=== PATIENT | male | born 1955 | race Caucasian/White ===

== ENCOUNTER 2017-08-04 09:28 | Day surgery (SDC) | payer BC ==
[~2017-08-04 09:28] MED LIST: Lactated Ringers 1,000 ML IV SCH; Lidocaine 1% 0 ML ONE; Lidocaine 1%/Sod Bicarbonate in NS 8.4% 1 ML Syringe IDERM PRN; Propofol 200 MG/20 ML SDV ONE; Sodium Chloride 0.9% 10 ML Syringe FLUSH PRN; fentaNYL 100 MCG/2 ML SDV ONE
[2017-08-04] MEDS ORDERED: Midazolam 1 MG/ML 2 ML SDV ONE (09:33)
[2017-08-04] MEDS ORDERED: Lidocaine 1% 4 ML ONE (09:33)
[2017-08-04] MEDS ORDERED: fentaNYL 100 MCG/2 ML SDV ONE (09:33)
[2017-08-04] MEDS ORDERED: Propofol 200 MG/20 ML SDV ONE (09:33)
--- NOTE | 2017-08-04 09:55 | PCM.PREANE ---
Preanesthetic Assessment - Anesthesia/Transfusion/Family Hx Anesthesia History: Prior Anesthesia Without Reaction Family History of Anesthesia Reaction: No Transfusion History: No Prior Transfusion(s) - Review of Systems General: No Symptoms Pulmonary: No Symptoms, Other (Sleep Apnea test was done. He could not sleep. He does not want to repeat the test. His states he snores a little. ) Cardiovascular: No Symptoms, Other (Hypertension. Eh today. States he is very nervous. ) Gastrointestinal: Other (GERD on medications and states it is controlled well. ) Neurological: No Symptoms Other: Reports: None - Physical Assessment NPO Status Date: 08/03/17 NPO Status Time: 23:45 Pulse: 83 O2 Sat by Pulse Oximetry: 94 Respiratory Rate: 20 Blood Pressure: 179/94 Temperature: 36.8 C Weight: 109 kg ASA Class: 2 Mental Status: Alert & Oriented x3 Airway Class: Mallampati = 2 Dentition: Reports: Normal Dentition Thyro-Mental Finger Breadths: 3 Mouth Opening Finger Breadths: 3 ROM/Head Extension: Full Lungs: Clear to Auscultation, Normal Respiratory Effort, Decreased Breath Sounds Cardiovascular: Regular Rate, Regular Rhythm - Imaging/EKG Impressions: EKG SR 89 bpm - Allergies Allergies/Adverse Reactions: Allergies Allergy/AdvReac Type Severity Reaction Status Date / Time No Known Allergies Allergy Verified 08/01/17 14:26 - Blood Blood Available: No - Acknowledgements Anesthesia Type Planned: MAC Pt an Appropriate Candidate for the Planned Anesthesia: Yes Alternatives and Risks of Anesthesia Discussed w Pt/Guardian: Yes Pt/Guardian Understands and Agrees with Anesthesia Plan: Yes PreAnesthesia Questionnaire HEENT History: Reports: Sinusitis, Other (See Below) Other HEENT History: Patient states he wears eye glasses for driving. Cardiovascular History: Reports: Hypertension Gastrointestinal History: Reports: Other (See Below) Other Gastrointestinal History: Heartburn Genitourinary History: Reports: Other (See Below) Other Genitourinary History: Nocturia Hematologic History: Reports: Iron Deficiency - Past Surgical History HEENT Surgical History: Reports: None Cardiovascular Surgical History: Reports: None Respiratory Surgical History: Reports: None GI Surgical History: Reports: None Female Surgical History: Reports: None Endocrine Surgical History: Reports: None Neurological Surgical History: Reports: None Musculoskeletal Surgical History: Reports: None Dermatological Surgical History: Reports: None - HOME MEDS Home Medications: Home Meds Omeprazole Magnesium [Prilosec Otc] 20 mg PO DAILY 08/01/17 [History] Tamsulosin [Flomax] 0.4 mg PO DAILY 08/01/17 [History] Valsartan/Hydrochlorothiazide [Valsartan-Hctz 160-12.5 mg Tab] 1 tab PO DAILY [History] Zolpidem Tartrate [Ambien] 5 mg PO BEDTIME 08/01/17 [History] - CURRENT (IN HOUSE) MEDS Current Meds: Current Medications Lactated Ringer's (Ringers, Lactated) 1,000 mls @ 125 mls/hr IV ASDIRECTED SHAINA Lidocaine/Sodium Bicarbonate (Buffered Lidocaine 1% In Ns 8.4%) 0.25 ml IDERM ONETIME PRN PRN Reason: Prior to IV Start Sodium Chloride (Saline Flush) 10 ml FLUSH ASDIRECTED PRN PRN Reason: Keep Vein Open Discontinued Medications Fentanyl (Sublimaze) Confirm Administered Dose 100 mcg .ROUTE .STK-MED ONE Stop: 08/04/17 09:08 Fentanyl (Sublimaze) Confirm Administered Dose 100 mcg .ROUTE .STK-MED ONE Stop: 08/04/17 09:34 Lidocaine HCl (Xylocaine-Mpf 1%) Confirm Administered Dose 4 mls @ as directed .ROUTE .STK-MED ONE Stop: 08/04/17 09:08 Lidocaine HCl (Xylocaine-Mpf 1%) Confirm Administered Dose 4 mls @ as directed .ROUTE .STK-MED ONE Stop: 08/04/17 09:34 Midazolam HCl (Versed 1 Mg/Ml) Confirm Administered Dose 2 mg .ROUTE .STK-MED ONE Stop: 08/04/17 09:34 Propofol (Diprivan 20 Ml) Confirm Administered Dose 200 mg .ROUTE .STK-MED ONE Stop: 08/04/17 09:08 Propofol (Diprivan 20 Ml) Confirm Administered Dose 600 mg .ROUTE .STK-MED ONE Stop: 08/04/17 09:34
--- NOTE | 2017-08-04 10:59 | PCM.OPNOTE ---
- General Post-Op/Procedure Note Date of Surgery/Procedure: 08/04/17 Operative Procedure(s): EGD/colonososcopy Pre Op Diagnosis: anemia Post-Op Diagnosis: Same Anesthesia Technique: MAC Primary Surgeon: Rainer Jerez EBL in mLs: 0 Complications: None Condition: Good
--- NOTE | 2017-08-04 11:06 | PCM48HPAN ---
Post Anesthesia Note - EVALUATION WITHIN 48HRS OF ANESTHETIC Vital Signs in Normal Range: Yes Patient Participated in Evaluation: Yes Respiratory Function Stable: Yes Airway Patent: Yes Cardiovascular Function Stable: Yes Hydration Status Stable: Yes Pain Control Satisfactory: Yes Nausea and Vomiting Control Satisfactory: Yes Mental Status Recovered: Yes Pulse Rate: 88 SaO2: 93 Resp Rate: 24 Temperature: 36.6 C Blood Pressure: 106/86
[2017-08-04 15:26] VITALS: BP 169/100
--- NOTE | 2017-08-04 15:37 | OR ---
DATE OF OPERATION: 08/04/2017 SURGEON: Rainer Jerez MD PREOPERATIVE DIAGNOSIS: Anemia. POSTOPERATIVE DIAGNOSIS: Anemia. OPERATION PERFORMED: Colonoscopy to the cecum. FINDINGS: Severe sigmoid diverticulosis and mild internal hemorrhoids. There were no angiodysplasias, neoplasias, large tumor masses, or ulcerations. ANESTHESIA: Procedure done under IV sedation, colonoscopy to cecum. DESCRIPTION OF PROCEDURE: The patient having been taken to the endoscopy suite and connected monitoring equipment, given IV sedation for upper GI endoscopy. IV sedation was continued for colonoscopy. He was placed in the left lateral position and perianal area was inspected, and was unremarkable. Rectal exam showed good sphincter tone. Video Olympus colonoscope was then introduced into the rectum and threaded up without problem to the cecum, where the appendicular orifice and ileocecal valve was noted. Prep was excellent. [place] Cleansing Score grade A. The scope was slowly withdrawn showing the cecum, ascending colon, transverse colon, descending colon, sigmoid colon, and rectum. Retroflexed view was done. The patient tolerated the procedure. The above noted was found and be followed by his family doctor. ESTIMATED BLOOD LOSS: MMODAL /[id number]
--- NOTE | 2017-08-05 08:41 | OR ---
DATE OF OPERATION: 08/04/2017 SURGEON: Rainer Jerez MD PREOPERATIVE DIAGNOSIS: Anemia. POSTOPERATIVE DIAGNOSIS: Anemia. OPERATION PERFORMED: Esophagogastroduodenoscopy. FINDINGS: Normal second portion of the duodenum, duodenal bulb, pyloric channel, antrum, body, cardia of the stomach, and fundus. There was a large fixed hiatal hernia, incompetent hiatus with GE junction located about 35 cm. Did not see any altercation of the mucosa in the hiatal hernia pouch. The esophagus was also normal. ANESTHESIA: Procedure EGD done under IV sedation. DESCRIPTION OF PROCEDURE: The patient was taken to the endoscopy room, placed in a supine position, connected to monitoring equipment, given IV sedation. Bite-block was inserted and video Olympus gastroscope placed in the posterior oropharynx, under direct vision, threaded past the cricopharyngeus, down the esophagus into the stomach. The stomach was insufflated, and the scope passed through the pylorus to the second portion of the duodenum, was slowly withdrawn showing a normal second portion of the duodenum, duodenal bulb. Antrum, body, and cardia of stomach was performed, J maneuver showed the fundus and a large hiatal hernia with an incompetent hiatus, large part of the stomach above the diaphragm. Scope withdrawn to the hiatal hernia pouch which did not show any acute pathology. GE junction was then viewed at 35 cm, it was free of any disease and the rest of the esophagus was viewed as the scope withdrawn, and was normal. The patient tolerated the procedure, IV sedation continued for colonoscopy. ESTIMATED BLOOD LOSS: MMODAL /[id number]
== END 2017-08-04 12:00 | disposition home or self-care (01) ==
LOC: JD.SDS 09:28
PROVIDERS: ATTEND Surgery
DX: D50.9 Iron deficiency anemia, unspecified (principal); K57.30 Diverticulosis of large intestine without perforation or abscess without bleeding; K64.8 Other hemorrhoids; K44.9 Diaphragmatic hernia without obstruction or gangrene; I10 Essential (primary) hypertension; F17.210 Nicotine dependence, cigarettes, uncomplicated; K21.9 Gastro-esophageal reflux disease without esophagitis; Z79.899 Other long term (current) drug therapy
CPT/HCPCS: 43235; 45378; J2001; J2250; J3010; J7120; J2704

== ENCOUNTER 2019-04-12 07:16 | Day surgery (SDC) | payer BC ==
[2019-04-12] MEDS ORDERED: Sodium Chloride 0.9% 10 ML Syringe FLUSH PRN (07:31)
[2019-04-12] MEDS ORDERED: Lidocaine 1%/Sod Bicarbonate in NS 8.4% 1 ML Syringe IDERM PRN (07:31)
[2019-04-12] MEDS ORDERED: Lactated Ringers 1,000 ML IV SCH (07:45)
[2019-04-12] MEDS ORDERED: Albuterol 0.083% 2.5 MG/3 ML Neb Soln ONE (07:49)
--- NOTE | 2019-04-12 07:50 | PCM.PREANE ---
Preanesthetic Assessment - Anesthesia/Transfusion/Family Hx Anesthesia History: Prior Anesthesia Without Reaction Family History of Anesthesia Reaction: No Transfusion History: No Prior Transfusion(s) - Review of Systems General: No Symptoms Pulmonary: Other (smoker) Cardiovascular: No Symptoms, Other (HTN) Gastrointestinal: Other (GERD) Neurological: No Symptoms Other: Reports: None - Physical Assessment NPO Status Date: 04/11/19 NPO Status Time: 21:00 Vital Signs: Last Vital Signs Temp 37.2 C 04/12/19 07:25 Pulse 93 04/12/19 07:25 Resp 20 04/12/19 07:25 BP 159/106 H 04/12/19 07:25 Pulse Ox 92 L 04/12/19 07:25 Height: 1.65 m Weight: 105.233 kg ASA Class: 2 Mental Status: Alert & Oriented x3 Airway Class: Mallampati = 2 Dentition: Reports: Normal Dentition Thyro-Mental Finger Breadths: 3 Mouth Opening Finger Breadths: 3 ROM/Head Extension: Full Lungs: Clear to Auscultation, Normal Respiratory Effort, Wheezing (preop neb treatment) Cardiovascular: Regular Rate, Regular Rhythm - Imaging/EKG Impressions: EKG: SR with abnormal R wave progression - Allergies Allergies/Adverse Reactions: Allergies Allergy/AdvReac Type Severity Reaction Status Date / Time No Known Allergies Allergy Verified 04/09/19 11:36 - Blood Blood Available: No Product(s) Available: None - Anesthesia Plan Pre-Op Medication Ordered: None - Acknowledgements Anesthesia Type Planned: MAC Pt an Appropriate Candidate for the Planned Anesthesia: Yes Alternatives and Risks of Anesthesia Discussed w Pt/Guardian: Yes Pt/Guardian Understands and Agrees with Anesthesia Plan: Yes PreAnesthesia Questionnaire HEENT History: Reports: None Other HEENT History: Patient states he wears eye glasses for driving. Cardiovascular History: Reports: Hypertension Respiratory History: Reports: None Gastrointestinal History: Reports: GERD Other Gastrointestinal History: Heartburn Genitourinary History: Reports: Other (See Below) Other Genitourinary History: Nocturia Musculoskeletal History: Reports: None Neurological History: Reports: None Psychiatric History: Reports: None Endocrine/Metabolic History: Reports: None Hematologic History: Reports: None Immunologic History: Reports: None Oncologic (Cancer) History: Reports: None Dermatologic History: Reports: None - Past Surgical History Head Surgeries/Procedures: Reports: None HEENT Surgical History: Reports: None Cardiovascular Surgical History: Reports: None Respiratory Surgical History: Reports: None GI Surgical History: Reports: Colonoscopy, EGD Male Surgical History: Reports: None Endocrine Surgical History: Reports: None Neurological Surgical History: Reports: None Musculoskeletal Surgical History: Reports: None Oncologic Surgical History: Reports: None Dermatological Surgical History: Reports: None - SUBSTANCE USE Smoking Status *Q: Light Tobacco Smoker Tobacco Use Within Last Twelve Months: Cigarettes Recreational Drug Use History: No - HOME MEDS Home Medications: Home Meds Omeprazole Magnesium [Prilosec Otc] 20 mg PO Q2D 08/01/17 [History] Tamsulosin [Flomax] 0.4 mg PO DAILY 08/01/17 [History] Valsartan/Hydrochlorothiazide [Diovan Hct 320-12.5 mg Tab] 1 tab PO DAILY [History] amLODIPine [Norvasc] 5 mg PO DAILY 04/09/19 [History] - CURRENT (IN HOUSE) MEDS Current Meds: Current Medications Lactated Ringer's (Ringers, Lactated) 1,000 mls @ 125 mls/hr IV ASDIRECTED SHAINA Stop: 04/12/19 23:00 Lidocaine/Sodium Bicarbonate (Buffered Lidocaine 1% In Ns 8.4%) 0.25 ml IDERM ONETIME PRN PRN Reason: Prior to IV Start Stop: 04/12/19 18:00 Sodium Chloride (Saline Flush) 10 ml FLUSH ASDIRECTED PRN PRN Reason: Keep Vein Open Stop: 04/12/19 18:00
[2019-04-12] MEDS ORDERED: fentaNYL 100 MCG/2 ML SDV ONE (08:08)
[2019-04-12] MEDS ORDERED: Midazolam 1 MG/ML 2 ML SDV ONE (08:08)
[2019-04-12] MEDS ORDERED: Propofol 200 MG/20 ML SDV ONE ×2 (08:17→09:19)
[2019-04-12] MEDS ORDERED: Albuterol 0.083% 2.5 MG/3 ML Neb Soln NEB ONE (08:30)
--- NOTE | 2019-04-12 09:30 | PCM48HPAN ---
Post Anesthesia Note - EVALUATION WITHIN 48HRS OF ANESTHETIC Vital Signs in Normal Range: Yes Patient Participated in Evaluation: Yes Respiratory Function Stable: Yes Airway Patent: Yes Cardiovascular Function Stable: Yes Hydration Status Stable: Yes Pain Control Satisfactory: Yes Nausea and Vomiting Control Satisfactory: Yes Mental Status Recovered: Yes Vital Signs: Last Vital Signs Temp 37.2 C 04/12/19 07:25 Pulse 93 04/12/19 07:25 Resp 20 04/12/19 07:25 BP 130/61 04/12/19 07:57 Pulse Ox 91 L 04/12/19 07:55
[2019-04-12 10:10] VITALS: BP 105/79; PULSE 100
--- NOTE | 2019-04-12 11:41 | OR ---
DATE OF OPERATION: 04/12/2019 SURGEON: Parth Duarte MD PREOPERATIVE DIAGNOSIS: 1. Esophageal stricture. 2. Dysphagia. POSTOPERATIVE DIAGNOSIS: 1. Distal esophageal ring. 2. Hiatal hernia. 3. Gastritis. OPERATION PERFORMED: Esophagogastroduodenoscopy with esophageal dilation and biopsies. ESTIMATED BLOOD LOSS: Minimal. ANESTHESIA: Monitored anesthesia care. COMPLICATIONS: None. INDICATION AND CONSENT: The patient is a 63-year-old male who developed gradually worsening dysphagia for many years. Now, the patient cannot eat solid food as it gets stuck into the esophagus and has to bring it up. The patient has family history of esophageal stenosis in his mother and some other relatives requiring several dilations. This is the patient's 1st evaluation for possible dilation of this stricture. However, during evaluating the patient in clinic, I deemed him a good candidate for the procedure and we discussed risks, benefits, and alternatives. Risks discussed included perforation, bleeding, need for further procedures should perforation happen. The patient agreed to proceed with the procedure and informed consent was obtained. DESCRIPTION OF PROCEDURE: The patient was taken to the procedure room, placed in left lateral decubitus position. Following induction of monitored anesthesia care, time-out was performed and the scope was inserted into the mouth all the way to the esophagus. Upper and mid esophagus appeared normal. In the distal esophagus around 35 cm, there was a stricture. This appeared to be more like an esophageal ring. The stricture could not be traversed by the scope, therefore the balloon dilation was performed. We began with a 10, 11, and 12 mm pneumatic balloon. This was passed across the stricture under direct visualization of the EGD and the stricture was dilated. Once this was done, we proceeded with trial of passing the scope. The scope did not pass. Therefore, we decided to proceed with dilation with a 12, 13.5, and 15 mm pneumatic balloon. This was also passed down and dilation was performed. Once this was done, the scope could now be passed through the stricture with minimal pressure. Prior to continuing the exam, we performed several tissue biopsies of the stricture as well as some tissue above and below the stricture. Then the scope was passed down into the stomach. There was some gastritis marked by erythematous gastric mucosa and we passed the scope down all the way to the second portion of duodenum, which appeared normal. Due to inflammation of the gastric mucosa, samples were taken in the antrum for H pylori analysis. Then, upon withdrawal, retroflexion revealed a large hiatal hernia with part of the cardia in the chest. However, there were no Abel ulcers. We withdrew the scope through the stricture once more. We passed the scope up and down the stricture without much force. Therefore, we proceeded with withdrawal of the scope from the esophagus and this marked the end of the procedure. The patient to be allowed to go home today and the patient to follow up in clinic in 2 weeks to discuss the pathology results and need for another dilation. MMODAL /[id number] CEDRICK
== END 2019-04-12 10:08 | disposition home or self-care (01) ==
LOC: JD.SDS 07:16
PROVIDERS: ATTEND Surgery
DX: K22.2 Esophageal obstruction (principal); K44.9 Diaphragmatic hernia without obstruction or gangrene; K21.9 Gastro-esophageal reflux disease without esophagitis; K29.70 Gastritis, unspecified, without bleeding; I10 Essential (primary) hypertension; F17.210 Nicotine dependence, cigarettes, uncomplicated; Z79.899 Other long term (current) drug therapy
CPT/HCPCS: 43239; 43249; 94640; J2250; J2704; J3010; J7120; 00731

== ENCOUNTER 2020-02-14 10:27 | Day surgery (SDC) | payer MEDICARE, BC ==
[~2020-02-14 10:27] MED LIST changes: -Lidocaine 1% 0 ML ONE; -Propofol 200 MG/20 ML SDV ONE; -fentaNYL 100 MCG/2 ML SDV ONE
[2020-02-14] MEDS ORDERED: Albuterol 0.083% 2.5 MG/3 ML Neb Soln NEB ONE (12:49)
--- NOTE | 2020-02-14 12:51 | PCM.PREANE ---
Preanesthetic Assessment - Procedure Proposed Procedure: EGD with dilation - Anesthesia/Transfusion/Family Hx Anesthesia History: Prior Anesthesia Without Reaction Family History of Anesthesia Reaction: No Transfusion History: No Prior Transfusion(s) Intubation History: Unknown - Review of Systems General: No Symptoms Pulmonary: No Symptoms (ETOH: 2-3 drinks per night. Smoker: 1 pack per 1-2 weeks for 3 years.), Cough (morning) Cardiovascular: No Symptoms (HTN) Gastrointestinal: No Symptoms (GERD: on medication), Difficulty Swallowing Neurological: No Symptoms Other: Reports: None - Physical Assessment NPO Status Date: 02/13/20 NPO Status Time: 20:00 Vital Signs: Last Vital Signs Temp 36.3 C 02/14/20 11:00 Pulse 100 02/14/20 11:00 Resp 16 02/14/20 11:00 BP 146/90 H 02/14/20 11:30 Pulse Ox 92 L 02/14/20 11:00 Height: 1.55 m Weight: 96.9 kg ASA Class: 3 Mental Status: Alert & Oriented x3 Airway Class: Mallampati = 2 Dentition: Reports: Normal Dentition, Caries Thyro-Mental Finger Breadths: 3 Mouth Opening Finger Breadths: 3 ROM/Head Extension: Full Lungs: Clear to Auscultation, Normal Respiratory Effort, Decreased Breath Sounds Cardiovascular: Regular Rate, Regular Rhythm, No Murmurs - Allergies Allergies/Adverse Reactions: Allergies Allergy/AdvReac Type Severity Reaction Status Date / Time No Known Allergies Allergy Verified 02/14/20 11:31 - Anesthesia Plan Pre-Op Medication Ordered: None - Acknowledgements Anesthesia Type Planned: MAC Pt an Appropriate Candidate for the Planned Anesthesia: Yes Alternatives and Risks of Anesthesia Discussed w Pt/Guardian: Yes Pt/Guardian Understands and Agrees with Anesthesia Plan: Yes PreAnesthesia Questionnaire HEENT History: Reports: None Other HEENT History: Patient states he wears eye glasses for driving. Cardiovascular History: Reports: Hypertension Respiratory History: Reports: None Gastrointestinal History: Reports: GERD Other Gastrointestinal History: Heartburn Genitourinary History: Reports: Other (See Below) Other Genitourinary History: Nocturia Musculoskeletal History: Reports: None Neurological History: Reports: None Psychiatric History: Reports: Other (See Below) Other Psychiatric History: alcohol abuse Endocrine/Metabolic History: Reports: None Hematologic History: Reports: Anemia Immunologic History: Reports: None Oncologic (Cancer) History: Reports: None Dermatologic History: Reports: None - Past Surgical History GI Surgical History: Reports: Colonoscopy, EGD Other Female Surgeries/Procedures: nocturia Male Surgical History: Reports: Other (See Below) - SUBSTANCE USE Tobacco Use Status *Q: Former Tobacco User Days Per Week of Alcohol Use: 7 Recreational Drug Use History: No - HOME MEDS Home Medications: Home Meds Omeprazole Magnesium [Prilosec Otc] 20 mg PO Q2D 08/01/17 [History] Tamsulosin [Flomax] 0.4 mg PO DAILY 08/01/17 [History] Valsartan/Hydrochlorothiazide [Diovan Hct 320-12.5 mg Tab] 1 tab PO DAILY 04/09/19 [History] amLODIPine [Norvasc] 5 mg PO DAILY 04/09/19 [History] Fexofenadine/Pseudoephedrine [Cheri-D 24 Hour Tablet] 1 tab PO DAILY PRN 02/11/20 [History] Zolpidem Tartrate [Ambien] 5 mg PO BEDTIME PRN 02/11/20 [History] - CURRENT (IN HOUSE) MEDS Current Meds: Current Medications Lactated Ringer's (Ringers, Lactated) 1,000 mls @ 125 mls/hr IV ASDIRECTED SHAINA Stop: 02/14/20 23:00 Last Admin: 02/14/20 11:00 Dose: 125 mls/hr Documented by: Lidocaine/Sodium Bicarbonate (Buffered Lidocaine 1% In Ns 8.4%) 0.25 ml IDERM ONETIME PRN PRN Reason: Prior to IV Start Stop: 02/14/20 18:00 Last Admin: 02/14/20 11:00 Dose: 0.25 ml Documented by: Sodium Chloride (Saline Flush) 10 ml FLUSH ASDIRECTED PRN PRN Reason: Keep Vein Open Stop: 02/14/20 18:00
[2020-02-14] MEDS ORDERED: Propofol 200 MG/20 ML SDV ONE (13:15)
[2020-02-14] MEDS ORDERED: fentaNYL 100 MCG/2 ML SDV ONE (13:16)
[2020-02-14] MEDS ORDERED: Lidocaine 1% 6 ML ONE (13:17)
--- NOTE | 2020-02-14 14:40 | PCM48HPAN ---
Post Anesthesia Note - EVALUATION WITHIN 48HRS OF ANESTHETIC Vital Signs in Normal Range: Yes Patient Participated in Evaluation: Yes Respiratory Function Stable: Yes Airway Patent: Yes Cardiovascular Function Stable: Yes Hydration Status Stable: Yes Pain Control Satisfactory: Yes Nausea and Vomiting Control Satisfactory: Yes Mental Status Recovered: Yes Vital Signs: Last Vital Signs Temp 98.3 F 02/14/20 14:24 Pulse 92 02/14/20 14:24 Resp 16 02/14/20 14:24 BP 106/88 02/14/20 14:24 Pulse Ox 91 L 02/14/20 14:24
[2020-02-14 14:48] VITALS: BP 125/80; PULSE 91
--- NOTE | 2020-02-15 02:27 | PROC ---
DATE OF OPERATION: 02/14/2020 SURGEON: Parth Duarte MD PREOPERATIVE DIAGNOSIS: Dysphagia due to esophageal stricture. POSTOPERATIVE DIAGNOSIS: Dysphagia due to esophageal stricture. PROCEDURE: Esophagogastroduodenoscopy with balloon dilation to 16.5 mm. ESTIMATED BLOOD LOSS: Minimal. ANESTHESIA: Monitored anesthesia care. COMPLICATIONS: None. INDICATIONS AND CONSENT: The patient is a 64-year-old male with history of esophageal strictures. He had undergone first balloon dilation back in March. The patient started developing a progressive dysphagia again. He presented to my clinic for evaluation for another dilation, and we discussed risks, benefits, and alternatives, and agreed to proceed with the procedure. DESCRIPTION OF PROCEDURE: The patient was taken to the procedure room, placed in left lateral decubitus position. A time-out was performed. The patient was padded appropriately. Monitored anesthesia care was induced and then the patient position was turned into left lateral decubitus. We began the scope by inserting an Olympus EGD down the mouth, into the esophagus. At 37 cm from the incisors, there was a localized stricture, this was in the distal esophagus right above the hiatal hernia. The stricture was spanning about 0.5 cm. We were not able to traverse the stricture. Therefore, a balloon dilation was performed. We inserted an endoscopic balloon, TTS 12, 13.5, and 15 mm balloon from the endoscope and the stricture was dilated up to 15 mm with a small amount of bleeding after dilation. The endoscope was passed through the stricture after dilation without any problems down to the second portion of duodenum which was normal. The first portion was also normal. The antrum appeared slightly inflamed. Therefore, biopsies were taken here. On retroflexion, there was a medium-sized sliding hiatal hernia that was noted. Hiatal hernia contained some gastric contents such as fluid. Then, we went back into the stricture site that was in the distal esophagus and biopsies were taken at the stricture. The stricture appeared to be benign and circumferential. Then, at this point, we decided to dilate the stricture further as it still had to use slight pressure to pass through the stricture. Therefore, a 15, 16.5, and 18 TTS balloon was placed and the stricture was dilated to 16.5 mm. After this dilation, there was a small amount of oozing. The stricture at this point was wide open and did not require pressure to pass the scope. Once this was done, we put the scope back into the stomach, suctioned the air out, and removed the scope concluding the procedure. The patient will be allowed to return home and try mechanically soft foods and return to clinic in 2 weeks for postop check. VALENTINA /[id number]
== END 2020-02-14 14:55 | disposition home or self-care (01) ==
LOC: JD.SDS 10:27
PROVIDERS: ATTEND Surgery
DX: K22.2 Esophageal obstruction (principal); K44.9 Diaphragmatic hernia without obstruction or gangrene; K21.9 Gastro-esophageal reflux disease without esophagitis; I10 Essential (primary) hypertension; F17.210 Nicotine dependence, cigarettes, uncomplicated; D50.9 Iron deficiency anemia, unspecified; Z98.890 Other specified postprocedural states; Z79.899 Other long term (current) drug therapy
CPT/HCPCS: 43249; 94640; J2001; J2370; J2704; J3010; J7120; 00731